=== PATIENT | female | born 1975 | race Caucasian/White ===

== ENCOUNTER 2017-05-04 07:47 | Emergency (ER) | payer MEDICARE ==
[~2017-05-04] VITALS: Ht 157.5 cm; Wt 90.7 kg
[~2017-05-04 07:47] MED LIST: ULTRAM50 MG PO
--- OUTSIDE RECORDS SUMMARY | 2017-05-04 07:49 | XMS REPORT ---
[facility] Unknown Phone Unavailable Care Team Providers Care Copy Center Associate Name Role Phone Unavailable Unavailable Problems This patient has no known problems. Allergies, Adverse Reactions, Alerts This patient has no known allergies or adverse reactions. Medications This patient has no known medications. Encounters Start Date/Time End Date/Time Encounter Type Admission Type Attending [facility] Care Department Encounter ID 2017-04-13 00:00:00 2017-04-13 00:00:00 Outpatient [facility] [id number] 2017-03-19 11:53:09 2017-03-19 11:53:09 Outpatient [facility] [id number] 2017-03-19 10:08:43 2017-03-19 10:08:43 Outpatient [facility] [id number] 2017-02-25 00:00:00 2017-02-25 00:00:00 Outpatient [facility] [id number] 2017-01-20 00:00:00 2017-01-20 00:00:00 Outpatient [facility] [id number] 2017-01-19 00:00:00 2017-01-19 00:00:00 Outpatient [facility] [id number] 2017-01-19 00:00:00 2017-01-19 00:00:00 Outpatient [facility] [id number] 2017-01-01 00:00:00 2017-01-01 00:00:00 Outpatient [facility] [id number] 2017-01-01 00:00:00 2017-01-01 00:00:00 Outpatient [facility] [id number] 2016-12-31 00:00:00 2016-12-31 00:00:00 Outpatient [facility] [id number] 2016-12-19 13:43:20 2016-12-19 13:43:20 Outpatient [facility] [id number] 2016-12-17 12:51:08 2016-12-17 12:51:08 Outpatient [facility] [id number] 2016-12-17 00:00:00 2016-12-17 00:00:00 Outpatient [facility] [id number] 2016-12-08 07:58:43 2016-12-08 07:58:43 Outpatient [facility] [id number] 2016-12-04 11:48:51 2016-12-04 11:48:51 Outpatient [facility] [id number] 2016-12-04 11:21:36 2016-12-04 11:21:36 Outpatient [facility] [id number] 2016-12-04 10:37:44 2016-12-04 10:37:44 Outpatient [facility] [id number] 2016-11-25 00:00:00 2016-11-25 00:00:00 Outpatient [facility] [id number] 2016-11-25 00:00:00 2016-11-25 00:00:00 Outpatient [facility] [id number] 2016-11-19 00:00:00 2016-11-19 00:00:00 Outpatient [facility] [id number] 2016-11-17 12:04:08 2016-11-17 12:04:08 Emergency [facility] [id number] 2016-11-17 11:02:28 2016-11-17 11:02:28 Emergency [facility] [id number]
--- NOTE | 2017-05-04 08:35 | Diagnostic Imaging Report ---
PROCEDURE: Frontal and lateral views of the chest. COMPARISON: Portable chest 04/12/2016. INDICATIONS: CONGESTION, COUGH, SORE THROAT AND BODY ACHES FINDINGS: Lines/tubes: None. Lungs: The lungs are well inflated and clear. There is no evidence of pneumonia or pulmonary edema. Pleura: There is no pleural effusion or pneumothorax. Heart and mediastinum: The heart and the mediastinum are normal. Bones: No acute bony abnormality. Degenerative changes of the thoracic spine. IMPRESSION: No acute radiographic abnormality. Dictated by: Zach Morales M.D. on 05/04/2017 at 8:34 Electronically approved by: Zach Morales M.D. on 05/04/2017 at 8:34
[2017-05-04 08:52] LABS: STREPTOCOCCUS GRP A ANTIGEN NEGATIVE (NEGATIVE)
[2017-05-04 09:06] LABS: INFLUENZAE A&B ANTIGEN (RAPID) NEGATIVE (NEGATIVE)
[2017-05-04 09:31] VITALS: BP 149/94
== END 2017-05-04 09:39 | disposition home or self-care (01) ==
LOC: ER 07:47
DX: R05 Cough (principal); J20.9 Acute bronchitis, unspecified; I10 Essential (primary) hypertension; E11.9 Type 2 diabetes mellitus without complications
CPT/HCPCS: 71046; 83518; 87070; 87400; 99283